=== PATIENT | female | born 1965 | race Caucasian/White ===

== ENCOUNTER 2018-09-13 18:29 | Outpatient (REF) | payer BC, SELFPAY | END 2018-09-13 18:49 | LOC: NCHCN 18:29 | PROVIDERS: PCP Internal Medicine; Visit Provider Nurse Practitioner Family | DX: B35.1 Tinea unguium (principal) | CPT/HCPCS: 87102 ==

== ENCOUNTER 2019-12-06 21:17 | Outpatient (REF) | payer BC, SELFPAY ==
--- NOTE | 2019-12-06 16:30 | PAPFT_PTH ---
PATIENT: Yumiko Washington LOC: [facility] U#:[id number] AGE/SX: 54/F ROOM: RE12/06/[address]: Giuliana Manuel : 1965 BED: DIS: 12/06/2019 SPEC #: [id number] RECD: 12/07/19 12:36 STATUS: MICHELLE RETeresita #: [id number] MAREN: 12/06/19 16:[address]: Giuliana Manuel DEPT: [facility] Cytology RECD BY: Berta Coronado ENTERED: 12/07/19 12:37 SP TYPE: PAPFT OTHR DR: Hudson Jackson Tissues: 1 - CX/ENDOCX FOR PAP SMEARS Procedures: PAP THIN PREP/[facility] Screening HPV DNA PROBE Comments: [id number]
--- NOTE | 2019-12-06 16:55 | PAPNONF_PTH ---
PATIENT: Yumiko Washington LOC: [facility] U#:[id number] AGE/SX: 54/F ROOM: RE12/06/[address]: Giuliana Manuel : 1965 BED: DIS: 12/06/2019 SPEC #: [id number] RECD: 12/07/19 12:42 STATUS: MICHELLE RETeresita #: [id number] MAREN: 12/06/19 16:[address]: Giuliana Manuel DEPT: [facility] Cytology RECD BY: Berta Coronado ENTERED: 12/07/19 12:43 SP TYPE: HOSSEIN GILES DR: Hudson Jackson Tissues: 1 - BODY FLUID CYTO(SPUTUM/URINE)[facility] Procedures: BODY FLUID CYTO(URINE/SPUTUM) Comments: [id number] (TOTAL VOLUME = 80 ml's) (40 ml's URINE & 40 ml's CYTOLYT ADDED IN 2 CONTAINERS)
== END 2019-12-06 21:37 ==
LOC: NCHCN 21:17
PROVIDERS: PCP Internal Medicine; Visit Provider Nurse Practitioner Family
DX: Z80.52 Family history of malignant neoplasm of bladder (principal); Z12.4 Encounter for screening for malignant neoplasm of cervix; Z01.419 Encounter for gynecological examination (general) (routine) without abnormal findings
CPT/HCPCS: 88142; 87624; 88104

== ENCOUNTER 2020-10-03 20:27 | Outpatient (REF) | payer BC, SELFPAY ==
[2020-10-09 04:38] LABS: SARS-CoV-2 RNA Undetected (Undetected); SARS-CoV-2 Specimen Source Nasal
== END 2020-10-03 20:47 ==
LOC: NCHCN 20:27
PROVIDERS: PCP Internal Medicine; Visit Provider Internal Medicine
DX: Z20.828 Contact with and (suspected) exposure to other viral communicable diseases (principal)
CPT/HCPCS: U0003

== ENCOUNTER 2021-03-10 10:48 | Outpatient (REF) | payer BC, SELFPAY ==
[2021-03-10 16:06] LABS: Calculated LDL 130 mg/dL (<100); Cholesterol 243 mg/dL (<200); HDL Cholesterol 106 mg/dL (40-60); TSH (W/Ref FT4) 3.63 uIU/mL (0.36-3.74); Triglyceride 35 mg/dL (<150)
== END 2021-03-10 10:49 | disposition home or self-care (01) ==
LOC: NCHCN 10:48
PROVIDERS: PCP Internal Medicine; Visit Provider Nurse Practitioner Family
DX: E78.5 Hyperlipidemia, unspecified (principal); E03.9 Hypothyroidism, unspecified
CPT/HCPCS: 80061; 84443

== ENCOUNTER 2022-03-09 10:15 | Outpatient (REF) | payer BC, SELFPAY ==
[2022-03-09 22:16] LABS: Abs Immature Grans 0.01 10^3/uL (0.0-0.06); Absolute Basophil Count 0.07 10^3/uL (0.0-0.2); Absolute Eosinophil Count 0.13 10^3/uL (0.0-0.7); Absolute Lymphocyte Count 1.72 10^3/uL (1.2-3.4); Absolute Monocyte Count 0.47 10^3/uL (0.1-0.8); Basophils % 1.1; Eosinophils % 2.1; HCT 40.9 % (36.0-46.0); HGB 13.3 g/dL (11.2-15.7); Immature Grans % 0.2; Lymphocytes % 27.7; MCH 33.2 pg (27.0-33.0); MCHC 32.5 % (32.0-36.0); MPV 10.7 fL (8.0-11.0); Monocytes % 7.6; Neutrophils % 61.3; Nucleated RBC 0 %; Platelet Count 281 10^3/uL (130-400); RBC 4.01 10^6/uL (3.93-5.22); RDW 11.2 % (11.7-14.6); RDW-SD 42.5 fL
[2022-03-09 23:06] LABS: ALT 30 U/L (14-59); AST 28 U/L (15-37); Albumin 4.5 g/dL (3.4-5.0); Alkaline Phosphatase 94 U/L (46-116); Anion Gap 8.8 mmol/L (3-11); BUN 10 mg/dL (7-18); Bilirubin, Total 0.9 mg/dL (0.2-1.0); CO2 30.2 mmol/L (21.0-32.0); CREATININE 0.7 mg/dL (0.55-1.02); Calcium 9.2 mg/dL (8.5-10.1); Calculated LDL 142 mg/dL (<100); Chloride 104 mmol/L (98-107); Cholesterol 262 mg/dL (<200); Glucose 101 mg/dL (74-106); HDL Cholesterol 112 mg/dL (40-60); Potassium 3.8 mmol/L (3.5-5.1); Sodium 143 mmol/L (136-145); TSH (W/Ref FT4) 4.94 uIU/mL (0.36-3.74); Total Protein 7.8 g/dL (6.4-8.2); Triglyceride 42 mg/dL (<150); Vitamin B12 862 pg/mL (193-986)
== END 2022-03-09 10:16 | disposition home or self-care (01) ==
LOC: NCHCN 10:15
PROVIDERS: PCP Internal Medicine; Visit Provider Nurse Practitioner Family
DX: E78.5 Hyperlipidemia, unspecified (principal); E03.9 Hypothyroidism, unspecified; F41.3 Other mixed anxiety disorders
CPT/HCPCS: 80053; 80061; 82607; 84439; 84443; 85025

== ENCOUNTER 2025-04-16 19:18 | Outpatient (REF) | payer BC, SELFPAY ==
--- NOTE | 2025-04-16 10:15 | PAPFT_PTH ---
PATIENT: Yumiko Washington LOC: [facility] U#:[id number] AGE/SX: 60/F ROOM: RE04/16/[address]: Rob Cruz : 1965 BED: DIS: 04/16/2025 SPEC #: [id number] RECD: 04/17/25 13:06 STATUS: MICHELLE RETeresita #: [id number] MAREN: 04/16/25 10:[address] Cytology RECD BY: Berta Coronado ENTERED: 04/17/25 13:07 SP TYPE: PAPFT OTHR DR: Hudson Jackson Tissues: 1 - CX/ENDOCX FOR PAP SMEARS Procedures: PAP THIN PREP/[facility] Screening HPV DNA PROBE Comments: [id number] (HPV 16 & 18.45)
== END 2025-04-16 19:19 | disposition home or self-care (01) ==
LOC: LBN 19:18
PROVIDERS: PCP Internal Medicine; Visit Provider Nurse Practitioner Family
DX: Z12.4 Encounter for screening for malignant neoplasm of cervix (principal)
CPT/HCPCS: 88142; 87624